=== PATIENT | female | born 1975 | race Caucasian/White ===

== ENCOUNTER 2017-08-21 17:32 | Emergency (ER) | payer OTHER ==
[~2017-08-21] VITALS: Ht 170.2 cm; Wt 131.5 kg
[~2017-08-21 17:32] MED LIST: AMLO10 PO; Antivert25 MG PO; Bactrim Ds Tab1 EACH PO; CEPH500 PO; CETI5 PO; CIPHYDOTSU OT; CITA20 PO; DOXY100 PO; ERYSTE250 PO; ETOD200 PO; HYDACE5 PO; IBUP400 PO; IBUP800 PO; LEVSOD25 PO; LORA10 PO; MULVITMINE PO; Pyridium100 MG PO; SULTRIDS PO; UNKNOWN INHALER; Ultram50 MG PO; Zithromax250 MG PO
[2017-08-21 19:30] LABS: BASOPHILS ABSOLUTE AUTO 0.02 K/mm3 (0.00-0.23); BASOPHILS PERCENT AUTO 0 % (0-2); EOSINOPHILS ABSOLUTE AUTO 0.02 K/mm3 (0.00-0.68); EOSINOPHILS PERCENT AUTO 0 % (0-6); Hematocrit 43.8 % (33.0-51.0); Hemoglobin 14.1 g/dL (11.5-16.0); IMMATURE GRAN ABSOLUTE AUTO 0.08 K/mm3 (0.00-0.10); IMMATURE GRAN PERCENT AUTO 1 % (0-1); LYMPHOCYTES PERCENT AUTO 11 % (21-46); MONOCYTES ABSOLUTE AUTO 0.54 K/mm3 (0.16-1.47); MONOCYTES PERCENT AUTO 5 % (4-13); Mean Corpuscular HGB 29.9 pg (26.0-34.0); Mean Corpuscular HGB Conc 32.2 g/dL (31.5-36.5); Mean Corpuscular Volume 93 fL (80-100); Mean Platelet Volume 11.6 fL (9.1-12.4); NEUTROPHILS ABSOLUTE AUTO 8.81 K/mm3 (1.96-9.15); NEUTROPHILS PERCENT AUTO 83 % (41-73); Platelet Count 118 K/mm3 (150-400); RDW Coefficient Variation 14.8 % (11.7-14.2); Red Blood Cell Count 4.72 M/mm3 (3.80-5.20); White Blood Cell Count 10.67 K/mm3 (4.00-11.30)
[2017-08-21 19:41] LABS: International Normalized Ratio 1.09; Prothrombin Time Results 11.4 Sec (9.7-11.5)
[2017-08-21] MEDS ORDERED: OXYM.05NI (20:10)
== END 2017-08-21 20:15 | disposition home or self-care (01) ==
LOC: ER 17:32
PROVIDERS: Physician Assistant
DX: R04.0 Epistaxis (principal); J33.9 Nasal polyp, unspecified; E03.9 Hypothyroidism, unspecified; Z88.0 Allergy status to penicillin; Z88.8 Allergy status to other drugs, medicaments and biological substances; Z91.018 Allergy to other foods; Z79.899 Other long term (current) drug therapy
CPT/HCPCS: 85025; 85610; 99283

== ENCOUNTER → 2018-05-16 | Outpatient (CLI) | payer OTHER ==
[~2018-05-16] MED LIST changes: +OXYM.05NI
[2018-05-16 14:03] LABS: Appearance, Urine Turbid (Clear); Bilirubin, Urine Neg (Neg); Blood, Urine Neg (Neg); Color, Urine Amber (P-Yellow); Glucose Qualitative, Urine 3+ (Neg); Ketones, Urine Neg (Neg); Leukocyte Esterase, Urine Neg (Neg); Nitrite, Urine Neg (Neg); Protein, Urine 3+ (Neg); Specific Gravity, Urine 1.025 (1.003-1.022); Urobilinogen, Urine 2+ (Normal)
[2018-05-16 14:24] LABS: Amorphous Heavy (0-Heavy); Bacteria Few /hpf; Red Blood Cells, Urine 0-2 /hpf (0-2); Squamous Epithelial Cells Few /hpf (Few); White Blood Cells, Urine 0-2 /hpf (0-5)
== END | disposition home or self-care (01) ==
LOC: LAB 13:42 → LAB SHORT 13:42
PROVIDERS: Nurse Practitioner Family
DX: R35.0 Frequency of micturition (principal)
CPT/HCPCS: 81001